=== PATIENT | female | born 1970 ===

== ENCOUNTER 2020-08-22 11:51 | Emergency (ER) | payer SELFPAY ==
--- OUTSIDE RECORDS SUMMARY | 2020-08-22 11:58 | XMS REPORT | Continuity of Care Document ---
:1970 Author Organization [facility] t Address [address] [place] [address] Care Team Providers Name Role Phone Gen Attending Clinician Kip Braden Attending Clinician Problems This patient has no known problems. Allergies, Adverse Reactions, Alerts This patient has no known allergies or adverse reactions. Medications This patient has no known medications. Procedures This patient has no known procedures. Encounters Start End Encounter Admission Attending Care Care Encounter Source Date/Time Date/Time Type Type Clinicians Facility Department ID 2020-03-20 2020-03-20 Telephone SADE Blevins [id number] 00:00:00 00:00:00 Sydney MORRIS [id number] [facility] [id number] 2019-04-23 2019-04-23 Office ELLA Braden [id number] 14:50:01 16:25:25 Visit Talat VALLADARES [id number] [facility] [id number] [place] [id number] Results This patient has no known results.
[2020-08-22 12:06] LABS: Absolute Lymphocytes (CBC) 2.8 K/uL (0.7-4.9); Hematocrit 41.8 % (36.0-45.0); Lymphocytes % 31.2 % (15.3-44.8); MPV 7.8 fL (7.6-11.3); RBC Red Blood Cell Count 4.34 M/uL (3.86-4.86)
[2020-08-22 12:10] LABS: Protime INR 0.98
[2020-08-22 12:27] LABS: ALT/SGPT 19 U/L (12-78); AST/SGOT 14 U/L (15-37); Albumin 4.4 g/dL (3.4-5.0); Alkaline Phosphatase 53 U/L (45-117); BUN Blood Urea Nitrogen 16 mg/dL (7-18); Bicarbonate 28 mmol/L (21-32); Bilirubin Direct 0.1 mg/dL (0-0.2); Bilirubin Total 0.4 mg/dL (0.2-1.0); Glucose Level 106 mg/dL (74-106); Magnesium 2.3 mg/dL (1.8-2.4); NT PRO-BNP 18 pg/mL (<125); Potassium 3.7 mmol/L (3.5-5.1); Protein, Total 8.2 g/dL (6.4-8.2); Sodium Level 142 mmol/L (136-145); Troponin (Emerg Dept Use Only) < 0.02 ng/mL (0.0-0.045)
--- NOTE | 2020-08-22 12:33 | RAD REPORT ---
[facility]25 [facility] CLINICAL HISTORY: Shortness of breath COMPARISON: none FINDINGS: Mid and lower lungs are hazy. Upper lobes are clear. The heart is normal size IMPRESSION: Mid and lower lungs are hazy. It is uncertain if this is secondary to bilateral pneumoni a or overlying soft tissue. PA and lateral chest series recommended for further evaluation
--- NOTE | 2020-08-22 14:05 | ER ---
Nurse's Notes [facility] Name: Nkechi Huynh Age: 50 yrs Sex: Female : 1970 Arrival Date: 08/22/2020 Time: 11:54 Bed 3 Private MD: Diagnosis: Palpitations;Paresthesia of skin Presentation: 08/22 11:54 Chief complaint: Near syncopal episode while at work today. Also c/o intermittent hb palpitations, left arm numbness and tingling, and dizziness. Coronavirus screen: At this time, the client does not indicate any symptoms associated with coronavirus-19. Ebola Screen: No symptoms or risks identified at this time. Initial Sepsis Screen: Does the patient meet any 2 criteria? No. Patient's initial sepsis screen is negative. Does the patient have a suspected source of infection? No. Patient's initial sepsis screen is negative. Risk Assessment: Do you want to hurt yourself or someone else? Patient reports no desire to harm self or others. Onset of symptoms was August 22, 2020. 11:54 Method Of Arrival: Ambulatory 11:54 Acuity: ALMA 3 hb Triage Assessment: 11:57 General: Appears in no apparent distress. Behavior is calm, cooperative. Pain: Denies hb pain. EENT: No signs and/or symptoms were reported regarding the EENT system. Neuro: Level of Consciousness is awake, alert, obeys commands, Oriented to person, place, time, situation, Reports dizziness. Cardiovascular: Reports palpitations, Patient's skin is warm and dry. Respiratory: Respiratory effort is even, unlabored, Respiratory pattern is regular, symmetrical. GI: No signs and/or symptoms were reported involving the gastrointestinal system. : No signs and/or symptoms were reported regarding the genitourinary system. Derm: Skin is pink, warm \T\ dry. Musculoskeletal: No signs and/or symptoms reported regarding the musculoskeletal system. Historical: - Allergies: 11:56 No Known Allergies; hb - Home Meds: 11:56 None [Active]; hb - PMHx: 11:56 Cardiomyopathy; Mitral valve prolapse; hb - PSHx: 11:56 Breast Augmentation; hb - Immunization history:: Adult Immunizations up to date. - Social history:: Smoking status: Patient denies any tobacco usage or history of. Screenin:57 Abuse screen: Denies threats or abuse. Denies injuries from another. Nutritional sv screening: No deficits noted. Tuberculosis screening: No symptoms or risk factors identified. Fall Risk None identified. Assessment: 11:58 General: see triage assessment . hb 11:59 Reassessment: received VO for cardiac workup by Dr. Waldron. em 12:44 Reassessment: Patient appears in no apparent distress at this time. Patient and/or hb family updated on plan of care and expected duration. Pain level reassessed. Patient is alert, oriented x 3, equal unlabored respirations, skin warm/dry/pink. 13:30 Reassessment: Patient appears in no apparent distress at this time. Patient and/or hb family updated on plan of care and expected duration. Pain level reassessed. Patient is alert, oriented x 3, equal unlabored respirations, skin warm/dry/pink. Vital Signs: 11:54 BP 124 / 79; Pulse 90; Resp 14; Temp 97.7; Pulse Ox 100% on R/A; Weight 56.7 kg; Height hb 5 ft. 6 in. (167.64 cm); Pain 0/10; 12:30 BP 111 / 71; Pulse 73; Resp 14; Pulse Ox 99% on R/A; hb 13:53 BP 128 / 71; Pulse 74; Resp 15; Pulse Ox 100% on R/A; hb 11:54 Body Mass Index 20.18 (56.70 kg, 167.64 cm) hb ED Course: 11:54 Patient arrived in ED. hb 11:55 Triage completed. hb 11:55 EKG done, by ED staff, reviewed by Julián Waldron MD. sv 11:55 Inserted saline lock: 20 gauge in right antecubital area, using aseptic technique. hb ,using aseptic technique. by Ziyad BRAVO Blood collected. 11:56 Arm band placed on. hb 11:57 Yaz Bhatti, RN is Primary Nurse. sv 11:57 Patient has correct armband on for positive identification. Placed in gown. Bed in low sv position. Call light in reach. monitor and storage bin tender on. Pulse ox on. NIBP on. Door closed. Head of bed elevated. 11:59 Julián Waldron MD is Attending Physician. kdr 12:25 XRAY Chest (1 view) In Process Unspecified. EDMS 12:44 Alissa Baum, RN is Primary Nurse. hb Administered Medications: No medications were administered Outcome: 14:10 Patient left the ED. iw Signatures: Dispatcher [employer] Yaz Spivey, RN RN Julián Lee MD MD kdr Munoz, Edgar, RN RN em Williams, Irene, RN RN iw Alissa Baum, LAWRENCE RN hb
--- NOTE | 2020-08-22 14:05 | EDPHYS ---
Physician Documentation [facility] Name: Nkechi Huynh Age: 50 yrs Sex: Female : 1970 Arrival Date: 08/22/2020 Time: 11:54 Bed 3 Private MD: ED Physician Julián Waldron HPI: 08/22 17:34 This 50 yrs old Unknown Female presents to ER via Ambulatory with complaints of Near kdr Syncope. 17:34 The patient has experienced near-syncope, almost passed out, felt generally weak, felt kdr like heart was pounding. Onset: The symptoms/episode began/occurred suddenly, just prior to arrival. Duration: This was a single episode, that is still ongoing, but improving. Context: the episode(s) was witnessed, by a bystander, occurred at work, occurred while the patient was sitting. Associated injury: The patient did not suffer any apparent associated injury. Associated signs and symptoms: Pertinent positives: chest pain, dizziness, lightheadedness, palpitations, tingling, weakness. Current symptoms: Currently, the patient is not experiencing any symptoms. The patient has not experienced similar symptoms in the past. The patient has not recently seen a physician. Historical: - Allergies: 11:56 No Known Allergies; hb - Home Meds: 11:56 None [Active]; hb - PMHx: 11:56 Cardiomyopathy; Mitral valve prolapse; hb - PSHx: 11:56 Breast Augmentation; hb - Immunization history:: Adult Immunizations up to date. - Social history:: Smoking status: Patient denies any tobacco usage or history of. ROS: 17:34 Constitutional: Negative for fever, chills, and weight loss, Eyes: Negative for injury, kdr pain, redness, and discharge, ENT: Negative for injury, pain, and discharge, Neck: Negative for injury, pain, and swelling, Respiratory: Negative for shortness of breath, cough, wheezing, and pleuritic chest pain, Abdomen/GI: Negative for abdominal pain, nausea, vomiting, diarrhea, and constipation, Back: Negative for injury and pain, : Negative for injury, bleeding, discharge, and swelling, MS/Extremity: Negative for injury and deformity, Skin: Negative for injury, rash, and discoloration, Psych: Negative for depression, anxiety, suicide ideation, homicidal ideation, and hallucinations, Allergy/Immunology: Negative for hives, rash, and allergies, Endocrine: Negative for neck swelling, polydipsia, polyuria, polyphagia, and marked weight changes, Hematologic/Lymphatic: Negative for swollen nodes, abnormal bleeding, and unusual bruising. 17:34 Cardiovascular: Positive for chest pain, palpitations, Negative for edema, orthopnea, paroxysmal nocturnal dyspnea. 17:34 Neuro: Positive for dizziness, near syncope, tingling, weakness, Negative for altered mental status, headache, loss of consciousness, seizure activity, speech changes, syncope, visual changes. Exam: 16:03 Constitutional: This is a well developed, well nourished patient who is awake, alert, kdr and in no acute distress. Head/Face: Normocephalic, atraumatic. 16:03 ECG was reviewed by the Attending Physician. 17:34 Head/Face: Normocephalic, atraumatic. Eyes: Pupils equal round and reactive to light, kdr extra-ocular motions intact. Lids and lashes normal. Conjunctiva and sclera are non-icteric and not injected. Cornea within normal limits. Periorbital areas with no swelling, redness, or edema. Neck: Trachea midline, no thyromegaly or masses palpated, and no cervical lymphadenopathy. Supple, full range of motion without nuchal rigidity, or vertebral point tenderness. No Meningismus. Chest/axilla: Normal chest wall appearance and motion. Nontender with no deformity. No lesions are appreciated. Cardiovascular: Regular rate and rhythm with a normal S1 and S2. No gallops, murmurs, or rubs. Normal PMI, no JVD. No pulse deficits. Respiratory: Lungs have equal breath sounds bilaterally, clear to auscultation and percussion. No rales, rhonchi or wheezes noted. No increased work of breathing, no retractions or nasal flaring. Abdomen/GI: Soft, non-tender, with normal bowel sounds. No distension or tympany. No guarding or rebound. No evidence of tenderness throughout. Back: No spinal tenderness. No costovertebral tenderness. Full range of motion. Skin: Warm, dry with normal turgor. Normal color with no rashes, no lesions, and no evidence of cellulitis. MS/ Extremity: Pulses equal, no cyanosis. Neurovascular intact. Full, normal range of motion. Neuro: Awake and alert, GCS 15, oriented to person, place, time, and situation. Cranial nerves II-XII grossly intact. Motor strength 5/5 in all extremities. Sensory grossly intact. Cerebellar exam normal. Normal gait. Psych: Awake, alert, with orientation to person, place and time. Behavior, mood, and affect are within normal limits. Vital Signs: 11:54 BP 124 / 79; Pulse 90; Resp 14; Temp 97.7; Pulse Ox 100% on R/A; Weight 56.7 kg; Height hb 5 ft. 6 in. (167.64 cm); Pain 0/10; 12:30 BP 111 / 71; Pulse 73; Resp 14; Pulse Ox 99% on R/A; hb 13:53 BP 128 / 71; Pulse 74; Resp 15; Pulse Ox 100% on R/A; hb 11:54 Body Mass Index 20.18 (56.70 kg, 167.64 cm) hb MDM: 14:04 Patient medically screened. kdr 17:34 Data reviewed: vital signs, nurses notes, lab test result(s), radiologic studies. kdr Counseling: I had a detailed discussion with the patient and/or guardian regarding: the historical points, exam findings, and any diagnostic results supporting the discharge/admit diagnosis, lab results, radiology results, the need for outpatient follow up. ED course: The patient was concerned about the cost of the evaluation and declined further treatment, specially, a PA/lateral CXR and repeat Troponin.. 08/22 11:56 Order name: Basic Metabolic Panel; Complete Time: 13:44 em 08/22 11:56 Order name: CBC with Diff; Complete Time: 13:44 em 08/22 11:56 Order name: LFT's; Complete Time: 13:44 em 08/22 11:56 Order name: Magnesium; Complete Time: 13:44 em 12 11:56 Order name: NT PRO-BNP; Complete Time: 13:44 em 08/22 11:56 Order name: PT-INR; Complete Time: 13:44 em 08/22 11:56 Order name: Troponin (emerg Dept Use Only); Complete Time: 13:44 em 12 11:56 Order name: XRAY Chest (1 view); Complete Time: 13:44 em 08/22 11:56 Order name: EKG; Complete Time: 11:58 em 08/22 11:56 Order name: Cardiac monitoring; Complete Time: 08/22 11:56 Order name: EKG - Nurse/Tech; Complete Time: em 08/22 11:56 Order name: IV Saline Lock; Complete Time: 08/22 11:56 Order name: Labs collected and sent; Complete Time: em 08/22 11:56 Order name: O2 Per Protocol; Complete Time: 08/22 11:56 Order name: O2 Sat Monitoring; Complete Time: EC:03 Rate is 79 beats/min. Rhythm is regular, Sinus Rhythm with No ectopy. QRS [place] is kdr Normal. AK interval is normal. QRS interval is normal. QT interval is normal. Clinical impression: NSR w/ Non-specific ST/T Changes. Administered Medications: No medications were administered Disposition: 08/22/20 14:04 Patient has left against medical advice. Impression: Palpitations, Paresthesia of skin. - Patients states they are going to Home. - Condition is Stable. - Discharge Instructions: Palpitations, [id number], Paresthesia, [id number]. Thank You Letter form. Follow up: Private Physician; When: 1 - 2 days; Reason: If symptoms return, Further diagnostic work-up, Recheck today's complaints, Continuance of care, Re-evaluation by your physician. - Problem is new. - Symptoms are resolved. Signatures: Dispatcher [employer] Julián Simon MD MD [facility] Ziyad Gilliland RN RN Paerl Curry RN RN Alissa Baum RN RN Corrections: (The following items were deleted from the chart) 14:10 14:04 08/22/2020 14:04 Patients has left against medical advice. Impression: iw Palpitations; Paresthesia of skin. Patient states they are going to Home. Condition is Stable. Follow up: Private Physician; When: 1 - 2 days; Reason: If symptoms return, Further diagnostic work-up, Recheck today's complaints, Continuance of care, Re-evaluation by your physician. Problem is new. Symptoms are resolved. kdr
[2020-08-27 04:45] VITALS: TEMP 97.7
[2020-08-27 04:50] VITALS: BP 128/71; O2SAT 100
== END 2020-08-22 14:10 | disposition left against medical advice (07) ==
LOC: ER 11:51
DX: R00.2 Palpitations (principal); R20.2 Paresthesia of skin; I34.1 Nonrheumatic mitral (valve) prolapse
CPT/HCPCS: 36415; 71045; 80048; 80076; 83735; 83880; 84484; 85025; 85610; 93005; 99284